=== PATIENT | male | born 1985 | race Two or more races ===

== ENCOUNTER 2025-03-13 18:36 | Emergency (ER) | payer MEDICAID ==
[~2025-03-13] VITALS: Ht 170.2 cm; Wt 58.7 kg
[2025-03-13 19:15] LABS: BASOPHILS # (AUTO) 0.1 X10'3 (0-0.2); BASOPHILS % (AUTO) 0.7 % (0-1); EOSINOPHILS # (AUTO) 0.3 X10'3 (0-0.9); HEMATOCRIT 37.9 % (42.0-52.0); HEMOGLOBIN 13.1 g/dl (14.0-17.9); LYMPHOCYTES # (AUTO) 1.1 X10'3 (1.1-4.8); LYMPHOCYTES % (AUTO) 10.9 % (21-51); MEAN CORPUSCULAR HEMOGLOBIN 34.6 PG (27.0-31.0); MEAN CORPUSCULAR HGB CONC 34.5 g/dL (33.0-36.5); MEAN CORPUSCULAR VOLUME 100.3 FL (78-98); MEAN PLATELET VOLUME 8.2 FL (7.4-10.4); MONOCYTES # (AUTO) 0.5 X10'3 (0-0.9); NEUTROPHILS # (AUTO) 8.3 X10'3 (1.8-7.7); NEUTROPHILS % (AUTO) 80.4 % (42-75); PLATELET COUNT 247 X10'3 (140-440); RED BLOOD COUNT 3.78 X10'6 (4.70-6.10); RED CELL DISTRIBUTION WIDTH 13.1 % (11.5-14.5); WHITE BLOOD COUNT 10.3 X10'3 (4.5-11.0)
[2025-03-13 19:30] LABS: ALANINE AMINOTRANSFERASE 38 U/L (12-78); ALBUMIN 3.7 G/DL (3.4-5.0); ALBUMIN/GLOBULIN RATIO 1.4 (1.1-1.5); ALKALINE PHOSPHATASE 105 IU/L (46-116); ANION GAP 15 (8-16); ASPARTATE AMINO TRANSFERASE 40 U/L (10-37); BILIRUBIN,TOTAL 0.7 MG/DL (0.1-1.0); BLOOD UREA NITROGEN 12 MG/DL (7-18); BUN/CREATININE RATIO 13.8 (10.0-20.0); CALCIUM 8.6 MG/DL (8.5-10.1); CHLORIDE 98 MMOL/L (99-107); CREATININE 0.87 MG/DL (0.60-1.10); ETHANOL < 10 MG/DL (<10); GLUCOSE 168 MG/DL (70-104); LIPASE 28 U/L (16-77); POTASSIUM 3.3 MMOL/L (3.5-5.1); SODIUM 135 MMOL/L (135-145); TOTAL CARBON DIOXIDE 22.4 MMOL/L (24-32); TOTAL PROTEIN 6.4 G/DL (6.4-8.2); eCRCL 96 ML/MIN; eGFR > 90 ML/MIN
[2025-03-13 20:36] LABS: BILIRUBIN,URINE NEGATIVE (Neg); CLARITY,URINE CLEAR (Clear); COLOR,URINE YELLOW (Yellow); GLUCOSE, URINE NEGATIVE (Neg); KETONES,URINE 15 mg/dl (Neg); LEUKOCYTE ESTERASE ,URINE NEGATIVE (Neg); NITRITES, URINE NEGATIVE (Neg); OCCULT BLOOD,URINE NEGATIVE (Neg); PROTEIN,URINE 30 mg/dl (Neg); UA COLLECTION TYPE CLN CATCH MIDSTREAM; UROBILINOGEN,URINE 0.2 E.U/dL (0.2-1.0)
[2025-03-13 20:42] LABS: BACTERIA,URINE 1+ /HPF (Neg); RBC,URINE 0-2 /HPF (0-2); SQUAMOUS EPITHELIAL CELL,UR FEW /LPF (FEW)
[2025-03-13 20:46] LABS: URINE AMPHETAMINE SCREEN NEGATIVE (Neg); URINE BARBITUATE SCREEN POSITIVE (Neg); URINE BENZODIAZEPINES SCREEN POSITIVE (Neg); URINE CANNABINOID SCREEN NEGATIVE (Neg); URINE COCAINE SCREEN NEGATIVE (Neg); URINE METHADONE SCREEN NEGATIVE (Neg); URINE OPIATE SCREEN NEGATIVE (Neg); URINE PHENCYCLIDINE SCREEN NEGATIVE (Neg)
--- NOTE | 2025-03-13 21:32 | Physician Documentation ---
History of Present Illness ~ Chief Complaint: Seizure Stated Complaint: SZ Time Seen by MD: 21:31 Mode of Arrival: EMS HPI Patient presents to the emergency room after having a seizure. He reports history of seizures last time one year ago. He is new to the area in his homeless but states he does not take normal seizure medications. He does endorse history of alcoholism states his last drink was last night. Today he was staying hydrated and noticed that he was not having any tremors or withdrawal symptoms and thought he was doing well until he had a seizure. He does complaint of occiput pain as well as biting his tongue. Patient was found to be postictal. Medication Reconciliation Allergies: Coded Allergies: No Known Allergies (Unverified , 03/13/25) Review of Systems ROS All review of systems negative except as per HPI Physical Exam Vital Signs: Temperature: 98.3, Source: Oral, Heart Rate: 71, Respiratory Rate: 16, BP: 121/83, Pulse Oximetry: 99, Weight: 58.700 Oxygen Flow Rate: 0 Physical Exam General: Patient is awake, alert, oriented x4 in no acute distress. No tremors Head: Normocephalic with 3 cm full-thickness laceration to occiput Eyes: Conjunctival normal. EOMI. PERRL. ENT: Mucous membranes moist. No hemotympanum no peña signs no raccoon eyes no rhinorrhea Neck: Supple, trachea is midline. No cervical midline tenderness Chest: Clear to auscultation bilaterally without rales, rhonchi, or wheezes. There is no accessory muscle use or retractions. Cardiac: RRR without murmurs, gallops, or rubs. Neuro: Cranial nerves II-XII grossly intact. No focal neuro deficits. Patient ambulating without difficulty. Skin: Patient has some inflamed insect bites to his posterior bilateral thighs numbering approximately a dozen. Procedures Procedures Laceration repair: Status post informed verbal consent patient was sterilely cleaned and draped. 1% lidocaine with epinephrine utilized to anesthetize patient's wound. Patien t's wound was then thoroughly irrigated. Two zahira utilized to approximate laceration edges. Patient tolerated procedure well without complication. Total time of procedure 5 minutes. Progress Results/Orders Results/Orders Orders - JAM QUIROGA MD Cult Urine + [address] (03/13/25 20:42) Completed Orders - JAM QUIROGA MD Cbc/Diff (03/13/25 18:52) Lipase (03/13/25 18:52) CMP (03/13/25 18:52) Drug Screen, Urine (03/13/25 18:52) Ethanol (03/13/25 18:52) Ua W/Microscopic, Cult If Ind (03/13/25 20:23) Ondansetron Disint. Tablet (Zofran Odt T (03/13/25 21:40) Potassium Cl Sr Tablet (K-Dur Tablet) (03/13/25 21:39) Levetiracetam-[id number]/100ml (Levetira (03/13/25 21:52) Medications Received in ER Medications (Trade) Dose Ordered Sig/Carol Route PRN Reason Start Time Stop Time Status Last Admin Dose Admin (Zofran ODT tablet) 4 mg ONCE ONCE PO 03/13/25 21:40 03/13/25 21:41 DC 03/13/25 21:53 4 MG (K-DUR tablet) 40 meq ONCE STAT PO 03/13/25 21:39 03/13/25 21:41 DC 03/13/25 21:53 40 MEQ Levetiracetam 100 ml @ 400 mls/hr ONCE ONCE IV 03/13/25 21:52 03/13/25 21:54 DC 03/13/25 21:54 400 MLS/HR Vital Signs 03/13/25 03/13/25 03/13/25 18:38 18:47 21:06 Temp 98.3 98.3 Pulse 78 71 Resp 16 16 16 B/P (MAP) 115/84 121/83 (96) Pulse Ox 98 99 O2 Flow Rate 0 0 Laboratory Tests Test 03/13/25 19:00 03/13/25 20:23 White Blood Count 10.3 Red Blood Count 3.78 L Hemoglobin 13.1 L Hematocrit 37.9 L Mean Corpuscular Volume 100.3 H Mean Corpuscular Hemoglobin 34.6 H Mean Corpuscular Hemoglobin Concent 34.5 Red Cell Distribution Width 13.1 Platelet Count 247 Mean Platelet Volume 8.2 Neutrophils (%) (Auto) 80.4 H Lymphocytes (%) (Auto) 10.9 L Monocytes (%) (Auto) 5.0 Eosinophils (%) (Auto) 3.0 Basophils (%) (Auto) 0.7 Neutrophils # (Auto) 8.3 H Lymphocytes # (Auto) 1.1 Monocytes # (Auto) 0.5 Eosinophils # (Auto) 0.3 Basophils # (Auto) 0.1 CBC Comment Sodium Level 135 Potassium Level 3.3 L Chloride Level 98 L Carbon Dioxide Level 22.4 L Anion Gap 15 Blood Urea Nitrogen 12 Creatinine 0.87 Estimated GFR/1.73 m2 > 90 BUN/Creatinine Ratio 13.8 Glucose Level 168 H Calcium Level 8.6 Total Bilirubin 0.7 Aspartate Amino Transf (AST/SGOT) 40 H Alanine Aminotransferase (ALT/SGPT) 38 Alkaline Phosphatase 105 Total Protein 6.4 Albumin 3.7 Globulin 2.7 Albumin/Globulin Ratio 1.4 Lipase 28 Chemistry Comments Ethyl Alcohol Level < 10 Urine Specimen Description Cln catch midstream Urine Color Yellow Urine Clarity Clear Urine pH 6.0 Urine Specific [place] >=1.030 Urine Protein 30 H Urine Glucose (UA) Negative Urine Ketones 15 H Urine Occult Blood Negative Urine Nitrite Negative Urine Bilirubin Negative Urine Urobilinogen 0.2 Urine Leukocyte Esterase Negative Urine RBC 0-2 Urine WBC 10-20 H Urine Squamous Epithelial Cells Few Urine Bacteria 1+ Urine Culture Indicated Indicated Volume Urine Centrifuged 10 ml Urine Comment Urine Opiates Screen Negative Urine Methadone Screen Negative Urine Fentanyl Screen Negative Urine Barbiturates Screen Positive Urine Phencyclidine Screen Negative Urine Amphetamines Screen Negative Urine Benzodiazepines Screen Positive Urine Cocaine Screen Negative Urine Cannabinoids Screen Negative Drug Screen Comment Microbiology Date/Time Source Procedure Growth Status 03/13/25 20:42 Urine Clean Catch Midstream Urine Culture - Preliminary Culture received. Resulted Medical Decision Making Findings Patient presents to the emergency room status post seizure with a head laceration as well as some insect bites to his posterior thighs. Labs reassuring. Patient has known history of seizures and given the fact that he has suddenly decreased his alcohol consumption this is likely contributed to a breakthrough seizure. I do not feel he is in magi alcohol withdrawal however I will give him some withdrawal medications to tide him over. Given patient's lifestyle we will cover with antibiotics for his insect bites as I do believe they may be getting infected. ER precautions discussed Departure Disposition: HOME / SELF CARE / HOMELESS Impression: Primary Impression: Seizure disorder Additional Impressions: Cellulitis Laceration of head Condition: Stable Discharge Instructions: Cellulitis, Adult, [id number] Additional Instructions: Have your to zahira removed in 5-7 days Referrals: NO PRIMARY CARE PROVIDER (PCP) Prescriptions Triamcinolone Acetonide 0.5% Crm* (Kenalog 0.5% Crm*) 15 Gm Tube 1 APPLIC TOP Q12H for 30 Days, #15 GM apply to affected area(s) Prov: JAM QUIROGA MD 03/13/25 Chlordiazepoxide Hcl (Librium) 25 Mg Capsule 25 MG PO TID for Withdrawal, #7 CAP Prov: JAM QUIROGA MD 03/13/25 Sulfamethoxazole/Trimethoprim (Bactrim Ds Tablet) 800 Mg-160 Mg Tablet 1 TAB PO Q12H for 7 Days, #14 TAB Prov: JAM QUIROGA MD 03/13/25 Education Educated: Patient Educated regarding: diagnosis, treatment, need for follow up Signature Scribe Signature: No scribe Attestation: The note accurately reflects work and decisions made by me.Jam Quiroga MD 03/13/25 23:14 JAM QUIROGA MD March 13, 2025 21:32
[2025-03-13] MEDS ORDERED: levetiracetam inj 1,000 MG in normal saline 100ml IV soln 100 ML IV ONE (21:40)
[2025-03-13] MEDS: potassium Cl 20 mEq SR tablet PO STA (21:53)
[2025-03-13] MEDS: ondansetron 4mg rapidly disintigrating tab PO ONE (21:53)
[2025-03-13] MEDS: levetiracetam-NACL1000mg/100ml 100 ML IV ONE (21:54)
[2025-03-13] MEDS ORDERED: CHLO25CA10 PO (23:14)
[2025-03-13] MEDS ORDERED: TRIA15CR61 TOP (23:14)
[2025-03-13] MEDS ORDERED: SULF1TAB49 PO (23:14)
[2025-03-13 23:28] VITALS: BP 129/83; PULSE 86; RESP 16; TEMP 98.3; O2SAT 98
== END 2025-03-13 23:33 | disposition home or self-care (01) ==
LOC: ER 18:36
DX: S01.01XA Laceration without foreign body of scalp, initial encounter (principal); G40.909 Epilepsy, unspecified, not intractable, without status epilepticus; L03.811 Cellulitis of head [any part, except face]; X58.XXXA Exposure to other specified factors, initial encounter; Y93.89 Activity, other specified; Y92.89 Other specified places as the place of occurrence of the external cause; Y99.8 Other external cause status
CPT/HCPCS: 12002; 36415; 80053; 80305; 80320; 81001; 83690; 85025; 87088; 96365; 99284; J1953

== ENCOUNTER 2025-03-21 13:45 | Emergency (ER) | payer MEDICAID ==
[~2025-03-21] VITALS: Ht 167.6 cm; Wt 61.4 kg
[~2025-03-21 13:45] MED LIST: CHLO25CA10 PO; SULF1TAB49 PO; TRIA15CR61 TOP
[2025-03-21 13:57] VITALS: BP 112/74; PULSE 68; RESP 16; O2SAT 99
--- NOTE | 2025-03-21 14:06 | Physician Documentation ---
History of Present Illness ~ Chief Complaint: Staple Removal Stated Complaint: STAPLE REMOVAL Time Seen by MD: 14:20 HPI 40-year-old male presents to the ED with a complaint of having to zahira in the back of his head after having a recent seizure and injured himself. States on 7-10 days ago he had zahira placed. Denies any increased pain swelling or discharge. Placed On: March 21, 2025 Tetanus Within 5 Years: Yes Medication Reconciliation Allergies: Coded Allergies: No Known Allergies (Unverified , 03/13/25) Scheduled Chlordiazepoxide Hcl (Librium), 25 MG PO TID Triamcinolone Acetonide 0.5% Crm* (Kenalog 0.5% Crm*), 1 APPLIC TOP Q12H Discontinued Medications Sulfamethoxazole/Trimethoprim (Bactrim Ds Tablet), 1 TAB PO Q12H Discontinued Reason: Auto Discontinued Review of Systems All Other Systems at this time: Reviewed and Negative ROS As stated above in the HPI, otherwise all systems are reviewed and negative. Physical Exam Vital Signs: Temperature: 97.9, Heart Rate: 68, Respiratory Rate: 16, BP: 112/74, Pulse Oximetry: 99, Weight: 61.360 Oxygen Flow Rate: 0 Physical Exam General: Alert, no apparent distress. HEENT: PERRL, EOMI, no injection, moist mucous membranes. Neck: Full range of motion. Respiratory: Lungs clear, no respiratory distress. Chest: No accessory muscle use. Cardiovascular: Regular rate and rhythm, no murmurs. Gastrointestinal: Soft, nontender, nondistended. Bowels sounds present. Extremities: Normal range of motion, no deformity. Neurologic: Oriented x4. Psychiatric: Normal mood and affect. Skin: Normal color, warm and dry. No edema, no ecchymosis. Progress Results/Orders Results/Orders Vital Signs 03/21/25 03/21/25 13:57 15:01 Temp 97.9 97.9 Pulse 68 Resp 16 B/P (MAP) 112/74 Pulse Ox 99 O2 Flow Rate 0 Medical Decision Making Findings Zahira removed without incident. Departure Disposition: HOME / SELF CARE / HOMELESS Impression: Primary Impression: Laceration Discharge Instructions: Suture Removal, Care After Referrals: NO PRIMARY CARE PROVIDER (PCP) Education Educated: Patient Signature Scribe Signature: y Attestation: The note accurately reflects work and decisions made by me.Angel Marshall NP 03/21/25 23:45 ANGEL TORREZ NP March 21, 2025 14:06
[2025-03-21 15:01] VITALS: TEMP 97.9
== END 2025-03-21 15:03 | disposition home or self-care (01) ==
LOC: ER 13:46
DX: S01.81XD Laceration without foreign body of other part of head, subsequent encounter (principal); Z79.899 Other long term (current) drug therapy; X58.XXXD Exposure to other specified factors, subsequent encounter
CPT/HCPCS: 99281

== ENCOUNTER 2025-04-18 10:31 | Emergency (ER) | payer MEDICAID ==
[~2025-04-18] VITALS: Ht 170.2 cm; Wt 47.4 kg
[~2025-04-18 10:31] MED LIST changes: -SULF1TAB49 PO; -TRIA15CR61 TOP
[2025-04-18 10:38] VITALS: BP 133/85; PULSE 69; RESP 15; O2SAT 98
--- NOTE | 2025-04-18 10:43 | Physician Documentation ---
History of Present Illness ~ General Stated Complaint: MED CLEARANCE Time Seen by MD: 10:40 History of Present Illness Initial Comments 40 states he has been on an alcohol better for the last four days. He did not drink yesterday but is requesting to be medically cleared for [facility] for alcohol treatment. Denies any current alcohol withdrawal symptoms Medication Reconciliation Allergies: Coded Allergies: No Known Allergies (Unverified , 03/13/25) Scheduled Chlordiazepoxide Hcl (Librium), 25 MG PO TID Discontinued Medications Triamcinolone Acetonide 0.5% Crm* (Kenalog 0.5% Crm*), 1 APPLIC TOP Q12H Discontinued Reason: Auto Discontinued Review of Systems All Other Systems at this time: Reviewed and Negative ROS As stated above in the HPI, otherwise all systems are reviewed and negative. Physical Exam Physical Exam Physical Exam General: Alert, no apparent distress. Respiratory: Lungs clear, no respiratory distress. Cardiovascular: Regular rate and rhythm, no murmurs. Gastrointestinal: Soft, nontender, nondistended. Bowels sounds present. Neurologic: Oriented x4. Psychiatric: Normal mood and affect. Skin: Normal color, warm and dry. No edema, no ecchymosis. Progress Results/Orders Results/Orders Vital Signs 04/18/25 04/18/25 10:38 10:51 Temp 97.2 97.2 Pulse 69 Resp 15 B/P (MAP) 133/85 Pulse Ox 98 Medical Decision Making Findings This patient does not present with any signs of acute alcohol withdrawal. At this time I do not see any reason not to medically clear him for alcohol recovery. Departure Disposition: HOME / SELF CARE / HOMELESS Impression: Primary Impression: Alcohol abuse Condition: Stable Discharge Instructions: Alcohol Abuse and Dependence Information, Adult Additional Instructions: This patient is medically cleared for alcohol detox at [facility] Referrals: NO PRIMARY CARE PROVIDER (PCP) Signature Scribe Signature: f Attestation: Scribed for Angel Torrez Quality Tester by Angel Marshall NP . 04/18/25 18:14 ANGEL TORREZ NP Apr 18, 2025 10:43
[2025-04-18 10:51] VITALS: TEMP 97.2
== END 2025-04-18 10:52 | disposition home or self-care (01) ==
LOC: ER 10:32
DX: F10.10 Alcohol abuse, uncomplicated (principal); Y90.9 Presence of alcohol in blood, level not specified
CPT/HCPCS: 99281; 99282